=== PATIENT | female | born 1945 | race Caucasian/White ===

== ENCOUNTER → 2016-10-18 | Outpatient (CLI) | payer OTHER ==
[~2016-10-18] MED LIST: ALLO100T57 PO; ATEN50TA8 PO; FURO-85 PO; LORA-741 PO; MULT60CA PO; NAPR-201 PO; OMEP40CA PO; OXYB5TAB PO; POTA10CA28 PO; SIMV40TA2 PO; TRAM-10 PO; TRIA37.5 PO; VISINE OPB
[2016-10-18 18:46] LABS: BLOOD UREA NITROGEN 16 mg/dl (7-18); BUN/CREATININE RATIO 16.7 (10-20); CALCIUM 9.1 mg/dl (8.5-10.1); CARBON DIOXIDE 28 mmol/L (21-32); CHLORIDE 105 mmol/L (98-107); CREATININE 0.98 mg/dl (0.60-1.20); GLUCOSE 106 mg/dl (70-99); MAGNESIUM 2.1 mg/dl (1.8-2.4); POTASSIUM 4.5 mmol/L (3.5-5.1); SODIUM 141 mmol/L (136-145); URIC ACID 4.6 mg/dl (2.6-7.2)
[2016-10-18 18:49] LABS: CHOLESTEROL 186 mg/dl (0-200); CHOLESTEROL/HDL RATIO 3.8; HDL CHOLESTEROL 49 mg/dl; TRIGLYCERIDES 204 mg/dl (0-150); VERY LOW DENSITY LIPOPROT CALC 41 mg/dl
[2016-10-19 06:19] LABS: ESTIMATED AVERAGE GLUCOSE 126 mg/dl; HA1C FLAG Normal (Normal)
== END | disposition home or self-care (01) ==
LOC: C.LABSPEC 17:11
PROVIDERS: ATTEND Internal Medicine
DX: I10 Essential (primary) hypertension (principal); E78.5 Hyperlipidemia, unspecified; R73.9 Hyperglycemia, unspecified; R25.2 Cramp and spasm; M10.9 Gout, unspecified

== ENCOUNTER → 2017-03-03 | Outpatient (CLI) | payer OTHER ==
[2017-03-03 19:02] LABS: BASO % 0.5 %; BASO ABS # 0.04 K/uL (0-0.2); EOS % 1.8 %; HEMATOCRIT 36.7 % (37-47); IG% 0.1 %; LYMPH ABS # 2.29 K/uL (1.2-3.4); MEAN CORPUSCULAR HEMOGLOBIN 21.1 pg (25-34); MEAN CORPUSCULAR HGB CONC 29.7 g/dl (32-36); MEAN PLATELET VOLUME 10.5 fL (7.4-10.4); MONO % 9.7 %; NEUT % 59.9 %; PLATELET COUNT 313 K/uL (130-400); RED BLOOD COUNT 5.17 M/uL (4.2-5.4); WHITE BLOOD COUNT 8.18 K/uL (4.8-10.8)
[2017-03-03 19:14] LABS: ALT/SGPT 52 U/L (12-78); AST/SGOT 37 U/L (15-37); BLOOD UREA NITROGEN 15 mg/dl (7-18); BUN/CREATININE RATIO 16.3 (10-20); CALCIUM 8.7 mg/dl (8.5-10.1); CARBON DIOXIDE 28 mmol/L (21-32); CHLORIDE 107 mmol/L (98-107); CREATININE 0.93 mg/dl (0.60-1.20); GLUCOSE 97 mg/dl (70-99); POTASSIUM 4.7 mmol/L (3.5-5.1); SODIUM 141 mmol/L (136-145); URIC ACID 5.8 mg/dl (2.6-7.2)
[2017-03-03 19:19] LABS: ALB/GLOB RATIO 0.9 (0.9-2); ALKALINE PHOSPHATASE 134 U/L (45-117); CHOLESTEROL 176 mg/dl (0-200); CHOLESTEROL/HDL RATIO 4.1; HDL CHOLESTEROL 43 mg/dl; TRIGLYCERIDES 186 mg/dl (0-150); VERY LOW DENSITY LIPOPROT CALC 37 mg/dl
[2017-03-03 20:00] LABS: COMPLETE YES; MICROCYTOSIS PRESENT; POLYCHROMASIA 1+
[2017-03-04 06:22] LABS: ESTIMATED AVERAGE GLUCOSE 128 mg/dl; HA1C FLAG Normal (Normal)
== END | disposition home or self-care (01) ==
LOC: C.LABSPEC 17:42
PROVIDERS: ATTEND Internal Medicine
DX: M10.9 Gout, unspecified (principal); I10 Essential (primary) hypertension; E78.5 Hyperlipidemia, unspecified; R73.9 Hyperglycemia, unspecified

== ENCOUNTER → 2017-04-04 | Outpatient (CLI) | payer OTHER ==
--- NOTE | 2017-04-04 16:00 | MAMMOGRAPHY REPORT ---
BILATERAL DIGITAL SCREENING MAMMOGRAM WITH CAD: 04/04/2017 CLINICAL HISTORY: Routine screening. TECHNIQUE: Bilateral CC, MLO and XCCL views were obtained. Current study was also evaluated with a C PASSNFLYuter Aided Detection (CAD) system. COMPARISON: Comparison is made to exams dated: 03/31/2016 mammogram, 05/29/2012 mammogram, 02/24/2011 m ammogram, 02/23/2010 mammogram - [facility], 02/15/2008, and 05/30/2007. BREAST COMPOSITION: The tissue of both breasts is almost entirely fatty. FINDINGS: There are mild vascular calcifications in both breasts. There are multiple bilateral circ umscribed masses scattered in the breasts, slightly fluctuating in size compared to prior mammograms, but typically benign mammographic pattern most likely representing fibrocystic changes. No suspiciou s spiculated or irregular mass, architectural distortion or cluster of new, suspicious microcalcifica tions is seen. IMPRESSION: ACR BI-RADS CATEGORY 2: BENIGN There is no mammographic evidence of malignancy. A 1 year screening mammogram is recommended. The pa tient will receive written notification of the results. Approximately 10% of breast cancers are not detected with mammography. A negative mammographic report should not delay biopsy if a clinically suggestive mass is present. Geneva Chao M.D. ay/:04/04/2017 13:48:16 Sharemilker: Elizabeth FRANKEL)(Sri), [facility] letter sent: Normal 1/2 BI-RADS Code: ACR BI-RADS Category 2: Benign
== END | disposition home or self-care (01) ==
LOC: C.MAMM 09:33
PROVIDERS: ATTEND Internal Medicine
DX: Z12.31 Encounter for screening mammogram for malignant neoplasm of breast (principal)

== ENCOUNTER → 2017-06-08 | Day surgery (SDC) | payer OTHER ==
[2017-06-01 13:06] VITALS: Ht 157.5 cm; Wt 95.5 kg
[~2017-06-08] VITALS: Ht 157.5 cm; Wt 95.5 kg
[~2017-06-08] MED LIST changes: +LIDOCAINE HCL 2% 2 ML VIAL (20MG/ML) ONE; -NAPR-201 PO; +PROPOFOL IV EMULSION 10 MG/ML 20 ML VIAL IV ONE; +SODIUM CHLORIDE 0.9% 500ML 500 ML IV ONE; -TRIA37.5 PO; -VISINE OPB
[2017-06-08 12:38] VITALS: TEMP 37.1
--- NOTE | 2017-06-08 12:43 | Endo History and Physical ---
History & Physical Date of Service: Jun 08, 2017. Chief Complaint: iron deficiency anemia Referring Physician: Dr. Campbell History of Present Illness LUCA; prior colon with Dr Zazueta in [place] ~ 10 years ago- no findins; no FH Past Medical History Arthritis, Anxiety, Reflux, High Cholesterol, Hypertension, Chronic Steroid Use Past Surgical History Hx Cardiac Surgery: No Hx Internal Defibrillator: No Hx Pacemaker: No Hx Abdominal Surgery: Yes (MIGUELINA BSO, TUBAL LIGATION) Hx of Implantable Prosthesis: No Hx Post-Op Nausea and Vomiting: Yes Hx Cancer Surgery: Yes (MULTIPLE SKIN CANCER REMOVALS) Hx Thoracic Surgery: No Hx Orthopedic: Yes (LOWER BACK SURGERY) Hx Urinary Tract Surgery: No Family History None Social History Smoking Status: Never Smoker Hx Substance Use: No Hx Alcohol Use: No Allergies Coded Allergies: Febuxostat (Verified Allergy, Unknown, HEADACHE AND STOMACH PAIN, 06/01/17) Latex1 -Allergic Contact Dermititis (Verified Allergy, Unknown, RASH, 06/01) Cephalexin (Verified Adverse Reaction, Unknown, NAUSEA, 06/08/17) Uncoded Allergies: METAL (Allergy, Unknown, RASH WITH EXTENDED USE, 06/01/17) Current Medications Reported Home Medications Medications Dose Route/Sig Max Daily Dose Days Date Category Zocor (Simvastatin) 40 Mg Tab 40 Mg PO QPM 06/01/17 Reported Preservision Areds 2 (Multiple Vitamins W/ Minerals) 1 Cap Cap 1 Cap PO BID 06/01/17 Reported Ultram (Tramadol HCl) 50 Mg Tab 50 Mg PO Q4H PRN 06/01/17 Reported Oxybutynin Chloride Er (Oxybutynin Chloride) 5 Mg Tab 1 Tab PO BID 06/01/17 Reported Zyloprim (Allopurinol) 100 Mg Tab 1 Tab PO BID 06/01/17 Reported Micro-K Ext Rel (Potassium Chloride) 10 Meq Capcr 10 Meq PO QAM 06/01/17 Reported Lasix (Furosemide) 20 Mg Tab 20 Mg PO QAM 06/01/17 Reported Ativan (Lorazepam) 0.5 Mg Tab 1 Tab PO HS PRN 03/25/14 Reported Prilosec (Omeprazole) 40 Mg Capcr 40 Mg PO QAM 03/25/14 Reported Tenormin (Atenolol) 50 Mg Tab 50 Mg PO QAM 03/25/14 Reported Vital Signs Weight (Kilograms): 95.45 Height (Feet): 5 Height (Inches): 2 Physical Exam AAOx3 Nls1s2 Lungs CTA Abd soft NT/ND - CCE Assessment and Plan colonoscopy today
--- NOTE | 2017-06-08 13:31 | Discharge Instructions ---
Endoscopy Patient Instructions Date / Procedure(s) Performed Jun 08, 2017. Colonoscopy Allergy Information Coded Allergies: Febuxostat (Verified Allergy, Unknown, HEADACHE AND STOMACH PAIN, 06/01/17) Latex1 -Allergic Contact Dermititis (Verified Allergy, Unknown, RASH, 06/01) Uncoded Nonscreenable Allergen (Verified Allergy, Unknown, METAL - RASH WITH EXTENDED USE, 06/08/17) Cephalexin (Verified Adverse Reaction, Unknown, NAUSEA, 06/08/17) Discharge Date / Findings Jun 08, 2017. hemorrhoids Medication Instructions Restart Stopped Medication(s): Reported Home Medications Medications Dose Route/Sig Max Daily Dose Days Date Category Zocor (Simvastatin) 40 Mg Tab 40 Mg PO QPM 06/01/17 Reported Preservision Areds 2 (Multiple Vitamins W/ Minerals) 1 Cap Cap 1 Cap PO BID 06/01/17 Reported Ultram (Tramadol HCl) 50 Mg Tab 50 Mg PO Q4H PRN 06/01/17 Reported Oxybutynin Chloride Er (Oxybutynin Chloride) 5 Mg Tab 1 Tab PO BID 06/01/17 Reported Zyloprim (Allopurinol) 100 Mg Tab 1 Tab PO BID 06/01/17 Reported Micro-K Ext Rel (Potassium Chloride) 10 Meq Capcr 10 Meq PO QAM 06/01/17 Reported Lasix (Furosemide) 20 Mg Tab 20 Mg PO QAM 06/01/17 Reported Ativan (Lorazepam) 0.5 Mg Tab 1 Tab PO HS PRN 03/25/14 Reported Prilosec (Omeprazole) 40 Mg Capcr 40 Mg PO QAM 03/25/14 Reported Tenormin (Atenolol) 50 Mg Tab 50 Mg PO QAM 03/25/14 Reported Reported Home Medications Medications Dose Route/Sig Max Daily Dose Days Date Category Zocor (Simvastatin) 40 Mg Tab 40 Mg PO QPM 06/01/17 Reported Preservision Areds 2 (Multiple Vitamins W/ Minerals) 1 Cap Cap 1 Cap PO BID 06/01/17 Reported Ultram (Tramadol HCl) 50 Mg Tab 50 Mg PO Q4H PRN 06/01/17 Reported Oxybutynin Chloride Er (Oxybutynin Chloride) 5 Mg Tab 1 Tab PO BID 06/01/17 Reported Zyloprim (Allopurinol) 100 Mg Tab 1 Tab PO BID 8/23/17 Reported Micro-K Ext Rel (Potassium Chloride) 10 Meq Capcr 10 Meq PO QAM 06/01/17 Reported Lasix (Furosemide) 20 Mg Tab 20 Mg PO QAM 06/01/17 Reported Ativan (Lorazepam) 0.5 Mg Tab 1 Tab PO HS PRN 03/25/14 Reported Prilosec (Omeprazole) 40 Mg Capcr 40 Mg PO QAM 03/25/14 Reported Tenormin (Atenolol) 50 Mg Tab 50 Mg PO QAM 03/25/14 Reported Provider Instructions Activity Restrictions - No exercising or heavy lifting for 24 hours. - Do not drink alcohol the day of the procedure. - Do not drive a car or operate machinery until the day after the procedure. - Do not make any important decisions or sign important papers in 24 hours after the procedure. Following Day: - Return to full activity which may include returning to work/school. Diet Start your diet with liquids and light foods (jello, soup, juice, toast). Then eat your usual diet if not nauseated. Treatment For Common After Affects For mild abdominal pain, bloating, or excessive gas: - Rest - Eat lightly - Lie on right side Follow-Up Information Follow-up with Dr. Campbell as scheduled Anesthesia Information What You Should Know You have had a procedure that required some medicine to reduce anxiety and discomfort. This treatment is called moderate sedation. After receiving the treatment, you may be sleepy, but you will be able to breathe on your own. The effects of the treatment may last for several hours. Follow these instructions along with Activity/Diet recommendations noted above: * Do NOT do anything where dizziness or clumsiness would be dangerous. * Rest quietly at home today, then you can be up and about tomorrow. * Have a responsible person stay with you the rest of today. * You may have had an I.V. today. If so, you may take the dressing off later today. Recommendations Call your doctor if: * Trouble breathing * Continuous vomiting for more than 24 hours * Temperature above 101 degrees * Severe abdominal pain or bloating * Pain not relieved by pain medicine ordered * There is increased drainage or redness from any incision * A large amount of rectal bleeding greater than 2-3 tablespoons. (If you had a polyp/s removed or have hemorrhoids, a small amount of blood - from the rectum is to be expected.) * You have any unanswered questions or concerns. IN THE EVENT OF A SERIOUS EMERGENCY, GO TO THE NEAREST EMERGENCY ROOM Your discharge instructions were prepared by provider Juan Francisco Ayers. Patient Instructions Signature Page Jennifer Lau Patient (or Guardian) Signature/Date: I have read and understand the instructions given to me by my caregivers. Caregiver/RN/Doctor Signature/Date: The above-named patient and/or guardian has received patient instructions on this date. + Original Patient Signature Page (only) stays with chart. Please make copy for patient.
--- NOTE | 2017-06-08 13:38 | GI REPORT ---
Procedure Date: 06/08/2017 12:59 PM Procedure: Colonoscopy Indications: Iron deficiency anemia Medicines: Propofol per Anesthesia Complications: No immediate complications. Estimated blood loss: None. Estimated Blood Loss: Estimated blood loss: none. Estimated blood loss: none. Procedure: Pre-Anesthesia Assessment: - Prior to the procedure, a History and Physical was performed, and patient medications and allergies were reviewed. The patient's tolerance of previous anesthesia was also reviewed. The risks and benefits of the procedure and the sedation options and risks were discussed with the patient. All questions were answered, and informed consent was obtained. Prior Anticoagulants: The patient has taken no previous anticoagulant or antiplatelet agents. ASA Grade Assessment: II - A patient with mild systemic disease. After reviewing the risks and benefits, the patient was deemed in satisfactory condition to undergo the procedure. After I obtained informed consent, the scope was passed under direct vision. Throughout the procedure, the patient's blood pressure, pulse, and oxygen saturations were monitored continuously. The scope was introduced through the anus and advanced to the terminal ileum, with identification of the appendiceal orifice and IC valve. The colonoscopy was performed without difficulty. The patient tolerated the procedure well. The quality of the bowel preparation was good. Findings: The perianal and digital rectal examinations were normal. Pertinent negatives include normal sphincter tone, no palpable rectal lesions and no anal lesion or abnormality was detected. The colon (entire examined portion) appeared normal. The terminal ileum appeared normal. Non-bleeding internal hemorrhoids were found during retroflexion. The hemorrhoids were moderate. A few small-mouthed diverticula were found in the sigmoid colon. Impression: - The entire examined colon is normal. - The examined portion of the ileum was normal. - Non-bleeding internal hemorrhoids. - No specimens collected. Recommendation: - Discharge patient to home (ambulatory). - Advance diet as tolerated. - Continue present medications. - Perform an upper GI endoscopy. MD Juan Francisco Watson MD 06/08/2017 1:37:26 PM This report has been signed electronically. Note Initiated On: 06/08/2017 12:59 PM I attest to the content of the Intraoperative Record and orders documented therein, exceptions below
[2017-06-08 14:03] VITALS: BP 163/60; PULSE 71; O2SAT 95
--- NOTE | 2017-06-08 15:03 | Anesthesiology Progress Note ---
Anesthesia Post Op Note Date & Time Jun 08, 2017 at 15:03 Vital Signs Pain Intensity: 0 Vital Signs Past 12 Hours Date Time Temp Pulse Resp B/P (MAP) Pulse Ox O2 Delivery O2 Flow Rate FiO2 06/08/17 14:03 71 18 163/60 (94) 95 Room Air 06/08/17 13:48 85 18 129/80 (96) 95 Room Air 06/08/17 13:33 76 16 117/50 (72) 94 Room Air 06/08/17 12:38 37.1 88 20 173/73 (106) 95 Room Air Notes Mental Status: alert / awake / arousable, participated in evaluation Pt Amnestic to Procedure: Yes Nausea / Vomiting: adequately controlled Pain: adequately controlled Airway Patency, RR, SpO2: stable & adequate BP & HR: stable & adequate Hydration State: stable & adequate Anesthetic Complications: no major complications apparent
== END | disposition home or self-care (01) ==
LOC: C.GI 12:12
PROVIDERS: ATTEND Internal Medicine Gastroenterology
DX: D50.9 Iron deficiency anemia, unspecified (principal); K64.8 Other hemorrhoids; K57.30 Diverticulosis of large intestine without perforation or abscess without bleeding; M19.90 Unspecified osteoarthritis, unspecified site; F41.9 Anxiety disorder, unspecified; K21.9 Gastro-esophageal reflux disease without esophagitis; E78.00 Pure hypercholesterolemia, unspecified; I10 Essential (primary) hypertension; Z79.52 Long term (current) use of systemic steroids

== ENCOUNTER → 2017-08-04 | Outpatient (CLI) | payer OTHER ==
[~2017-08-04] MED LIST changes: -LIDOCAINE HCL 2% 2 ML VIAL (20MG/ML) ONE; -PROPOFOL IV EMULSION 10 MG/ML 20 ML VIAL IV ONE; -SODIUM CHLORIDE 0.9% 500ML 500 ML IV ONE
[2017-08-04 15:36] LABS: BASO % 0.5 %; BASO ABS # 0.04 K/uL (0-0.2); EOS % 2.3 %; HEMATOCRIT 37.6 % (37-47); IG% 0.2 %; LYMPH % 31.7 %; LYMPH ABS # 2.67 K/uL (1.2-3.4); MEAN CELL VOLUME 69.9 fL (80-100); MEAN CORPUSCULAR HEMOGLOBIN 20.8 pg (25-34); MEAN CORPUSCULAR HGB CONC 29.8 g/dl (32-36); MEAN PLATELET VOLUME 10.3 fL (7.4-10.4); MONO % 7.7 %; NEUT % 57.6 %; PLATELET COUNT 314 K/uL (130-400); RED BLOOD COUNT 5.38 M/uL (4.2-5.4); WHITE BLOOD COUNT 8.42 K/uL (4.8-10.8)
[2017-08-04 15:50] LABS: BLOOD UREA NITROGEN 13 mg/dl (7-18); BUN/CREATININE RATIO 13.6 (10-20); CALCIUM 8.3 mg/dl (8.5-10.1); CARBON DIOXIDE 24 mmol/L (21-32); CHLORIDE 107 mmol/L (98-107); CREATININE 0.97 mg/dl (0.60-1.20); GLUCOSE 113 mg/dl (70-99); SODIUM 141 mmol/L (136-145)
[2017-08-04 15:54] LABS: CHOLESTEROL 175 mg/dl (0-200); HDL CHOLESTEROL 44 mg/dl; TRIGLYCERIDES 230 mg/dl (0-150); URIC ACID 5.3 mg/dl (2.6-7.2); VERY LOW DENSITY LIPOPROT CALC 46 mg/dl
[2017-08-04 16:13] LABS: COMPLETE YES; MICROCYTOSIS PRESENT
[2017-08-05 06:19] LABS: ESTIMATED AVERAGE GLUCOSE 131 mg/dl; HA1C FLAG Normal (Normal)
== END | disposition home or self-care (01) ==
LOC: C.LABSPEC 14:47
PROVIDERS: ATTEND Internal Medicine
DX: I10 Essential (primary) hypertension (principal); E78.5 Hyperlipidemia, unspecified; R73.9 Hyperglycemia, unspecified; M10.9 Gout, unspecified; D50.9 Iron deficiency anemia, unspecified

== ENCOUNTER → 2018-02-02 | Outpatient (CLI) | payer OTHER ==
[2018-02-02 18:28] LABS: BLOOD UREA NITROGEN 12 mg/dl (7-18); CALCIUM 9.1 mg/dl (8.5-10.1); CARBON DIOXIDE 27 mmol/L (21-32); CREATININE 0.98 mg/dl (0.60-1.20); GLUCOSE 102 mg/dl (70-99); POTASSIUM 4.5 mmol/L (3.5-5.1); SODIUM 139 mmol/L (136-145)
[2018-02-02 18:31] LABS: CHOLESTEROL 155 mg/dl (0-200); LDL CHOLESTEROL (DIRECT) 98 mg/dl
[2018-02-03 07:12] LABS: HEMOGLOBIN A1C 6.3 % (4.5-5.6)
== END | disposition home or self-care (01) ==
LOC: C.LABSPEC 17:06
PROVIDERS: ATTEND Internal Medicine
DX: I10 Essential (primary) hypertension (principal); E78.5 Hyperlipidemia, unspecified; N73.9 Female pelvic inflammatory disease, unspecified